=== PATIENT | female | born 1995 | race Two or more races ===

== ENCOUNTER → 2024-04-29 | Outpatient (CLI) | payer OTHER ==
[2024-04-29 09:13] LABS: Basophils # (auto) 0.1 10 ^3/uL (0-0.2); Basophils % (auto) 0.4 % (0.0-2.0); Eosinophils # (auto) 0.1 10 ^3/uL (0-0.8); Eosinophils % (auto) 0.6 % (0.0-7.0); Hematocrit 42.5 % (36.0-46.0); Hemoglobin 14.3 g/dL (12.2-16.2); Lymphocytes # (auto) 1.9 10 ^3/uL (0.4-5.4); Lymphocytes % (auto) 15.4 % (10.0-50.0); Mean Corpuscular Hemoglobin 30.1 pg (28.0-32.0); Mean Corpuscular Hgb Conc. 33.6 g/dL (32.0-36.0); Mean Corpuscular Volume 89.6 fL (80.0-100.0); Monocytes # (auto) 0.6 10 ^3/uL (0-1.3); Monocytes % (auto) 5.2 % (0.0-12.0); Neutrophils # (auto) 9.5 10 ^3/uL (1.6-8.6); Neutrophils % (auto) 78.4 % (37.0-80.0); Platelet Count (auto) 273 10^3/uL (140-450); Red Blood Cells 4.74 10^6/uL (4.0-5.20); Red Cell Distribution Width 13.1 % (11.8-14.3); White Blood Cell 12.2 10^3/uL (4.4-10.8)
[2024-04-29 09:54] LABS: Alanine Aminotransferase 36 U/L (7-40); Alkaline Phosphatase 89 U/L (46-116); Anion Gap 9 (5-15); Aspartate Aminotransferase 23 U/L (13-40); BUN/Creatinine Ratio 6.5 (10.0-20.0); Bilirubin, Total 0.3 mg/dL (0.2-1.0); Calcium 9.7 mg/dL (8.7-10.4); Carbon Dioxide 23 mmol/L (20-31); Chloride 105 mmol/L (98-107); Cholesterol 141 mg/dL (< 200); Glucose 97 mg/dL (74-106); HDL Cholesterol 46 mg/dL (40-59); LDL Cholesterol 85 mg/dL (< 100); Sodium 137 mmol/L (136-145); Total Protein 7.8 g/dL (5.7-8.2); Triglycerides 122 mg/dL (< 150)
[2024-04-29 09:57] LABS: Thyroid Stimulating Hormone 1.06 uIU/mL (0.55-4.78)
[2024-04-29 10:01] LABS: Amphetamine Screen, Urine Neg (NEGATIVE); Barbiturate Scree,Urine Neg (NEGATIVE); Benzodiazephine Screen, Urine Neg (NEGATIVE); Cannabinoid Screen, Urine Neg (NEGATIVE); Cocaine Screen, Urine Neg (NEGATIVE); Opiate Scree,Urine Neg (NEGATIVE); Phencyclidine Screen, Urine Neg (NEGATIVE)
[2024-04-29 10:02] LABS: Albumin 5.1 g/dL (3.2-4.8); Blood Urea Nitrogen 6 mg/dL (9-23)
[2024-04-29 10:32] LABS: Hepatitis B Core Total AB Negative (Negative)
[2024-04-29 11:53] LABS: Free T3 3.29 pg/mL (2.3-4.2); Free T4 (Free Thyroxine) 1.15 ng/dL (0.89-1.76)
[2024-04-29 13:04] LABS: Hepatitis A Total Antibody Positive (Negative); Hepatitis B Surface Antibody Negative (Negative)
[2024-04-29 13:05] LABS: Hepatitis B Surface Antigen Negative (Negative); Hepatitis C Antibody Negative (Negative)
[2024-04-30 08:06] LABS: Alpha-1-Antitrypsin 173 mg/dL (100-188)
[2024-04-30 19:06] LABS: Chlamydia Trachomatis, NAA Negative (Negative); Neisseria gonorrhoeae, NAA Negative (Negative)
[2024-05-01 03:06] LABS: Varicella Zoster IgG Antibody Reactive (Non Reactive)
== END | disposition home or self-care (01) ==
LOC: LAB 08:33
PROVIDERS: ATTEND Licensed Practical Nurse
DX: O23.40 Unspecified infection of urinary tract in pregnancy, unspecified trimester (principal); Z31.430 Encounter of female for testing for genetic disease carrier status for procreative management; Z36.0 Encounter for antenatal screening for chromosomal anomalies; N39.0 Urinary tract infection, site not specified; E55.9 Vitamin D deficiency, unspecified; Z3A.00 Weeks of gestation of pregnancy not specified
CPT/HCPCS: 36415; 80053; 80061; 80307; 81025; 82103; 82306; 83036; 84439; 84443; 84481; 84702; 85025; 86592; 86703; 86704; 86706; 86708; 86762; 86787; 86803; 86850; 86900; 86901; 87086; 87340

== ENCOUNTER 2024-08-29 17:00 | Observation (INO) | payer OTHER ==
[~2024-08-29] VITALS: Ht 154.9 cm; Wt 94.3 kg
--- NOTE | 2024-08-29 17:59 | DVH ---
EXAM: US OBSTERICAL LIMITED CLINICAL HISTORY: vaginal bleeding COMPARISON: None TECHNIQUE: Grayscale, color-flow Doppler, and spectral Doppler ultrasound of the pelvis is performed by transabdominal technique. Findings/Impression: Single live intrauterine in breech presentation with heart rate of 140 bpm. Cervical os appears closed and measures 3.9 cm in length. Placenta is posterior in location without evidence of previa or abruption. MVP 4.5 cm.
== END 2024-08-29 17:58 | disposition home or self-care (01) ==
LOC: LDRP 17:00
PROVIDERS: ADMIT Obstetrics & Gynecology; ATTEND Obstetrics & Gynecology
DX: O46.92 Antepartum hemorrhage, unspecified, second trimester (principal); O26.892 Other specified pregnancy related conditions, second trimester; R10.9 Unspecified abdominal pain; Z3A.23 23 weeks gestation of pregnancy
CPT/HCPCS: 76815; 81002; 94760; G0378

== ENCOUNTER 2024-12-19 01:07 | Inpatient (IN) | payer OTHER ==
[~2024-12-19] VITALS: Ht 154.9 cm; Wt 94.3 kg
[2024-12-25] MEDS ORDERED: PREN-96 PO (16:13)
--- NOTE | 2024-12-25 16:13 | DVH ---
BIOPHYSICAL PROFILE HISTORY: Term Gestation TECHNIQUE: Multiple real-time grayscale sonographic images through the gravid uterus of the fetus wi th duplex Doppler color flow. FINDINGS: BIOPHYSICAL PROFILE: breathing score: 2 movement score: 2 tone score: 2 Quantitative ALEXANDRE score: 2 Total score: 8 out of 8 lie cephalic. heart rate 128 beats per minute. Placenta fundal/ posteriorly positioned. ALEXANDRE 9.1 cm. IMPRESSION: Biophysical profile score: 8 out of 8
[2024-12-25] MEDS ORDERED: LIDOCAINE 2%HCL (LOCAL ANESTH.) INJ 20ML MDV IJ PRN (17:45)
--- NOTE | 2024-12-25 17:54 | DVHHP ---
ADMIT DATE: 12/25/2024 CHIEF COMPLAINT: Induction of labor for nonreactive NST. HISTORY OF PRESENT ILLNESS: The patient is a 29-year-old 5, para 1 with due date of 12/25, estimated gestational age of 40 weeks, admitted for induction of labor. The patient was in labor and delivery for surveillance, noted to have nonreactive NST. Subsequently, the patient was admitted for induction of labor. Her BPP was 8/8. Estimated weight is 7.5. PAST MEDICAL HISTORY: None. PAST SURGICAL HISTORY: D and C. SOCIAL HISTORY: None. FAMILY HISTORY: None. OBSTETRIC AND GYNECOLOGIC HISTORY: Normal vaginal delivery. REVIEW OF SYSTEMS: Consistent with HPI. PHYSICAL EXAMINATION: VITAL SIGNS: Stable, afebrile. HEENT: Within normal limits. CARDIOVASCULAR: Regular rate and rhythm. LUNGS: Clear to auscultation. BREASTS: Symmetrical. No masses. ABDOMEN: Gravid. Estimated weight 7.5. PELVIC: 1 cm, posterior, 25%, -3. EXTREMITIES: No clubbing, cyanosis or edema. IMPRESSION: Intrauterine at 40 weeks, induction of labor. PLAN: Informed consent obtained. We will proceed with Cytotec. DO CARLOS Dent/LING TID: [id number] RECEIPT: [id number]
[2024-12-25 19:23] LABS: Hematocrit 34.3 % (36.0-46.0); Hemoglobin 11.7 g/dL (12.2-16.2); Mean Corpuscular Hemoglobin 29.7 pg (28.0-32.0); Mean Corpuscular Volume 87.4 fL (80.0-100.0); Nucleated Red Blood Cells % 0.0 %
[2024-12-25] MEDS: LACTATED RINGER'S 1,000 ML IV SCH (19:28)
[2024-12-25 19:29] LABS: Urine Protein, UAD Negative (Negative)
--- NOTE | 2024-12-25 19:33 | DVHHP2 ---
OB CC & HPI Date Date of Admission: Dec 25, 2024 Patient Identification: : 5 Para: 1 EDC: Dec 25, 2024 EGA: 40wk Chief Complaints: Reason for admission: induction of labor (NRFHT) Indication for induction: other (NRFHT) History of Present Complaints Pt is a 29 yo , IUP @ 40wk, came in for NST BPP, strip nonreactive, denies any ASTORGA, vision changes or epigastric pain OB hx: in 2020, baby boy, uncomplicated, adequate PNC Past Medical History Cardiac: No pertinent Hx Pulmonary: No pertinent Hx Central Nervous System: No pertinent Hx GI: No pertinent Hx Hemotology/Oncology: No pertinent Hx Hepatobiliary: No pertinent Hx Psychiatric: No pertinent Hx Musculoskeletal: No pertinent Hx Rheumotologic: No pertinent Hx Infectious Disease: No peritnent Hx ENT: No pertinent Hx Renal/: No pertinent Hx Endocrine: No pertinent Hx Dermatology: No pertinent Hx Past Surgical History: No pertinent Hx OB History OB History Care: Good Care Ultrasounds: Normal mid trimester US Obstetrical Complications: None Medical Complications: None Allergies: Coded Allergies: NO KNOWN ALLERGIES (Unverified , 08/29/24) Home Meds Reported Medications Vit W/ Ferrous Fumara ( One Daily) Daily Tab, 1 TAB PO DAILY, #90 TAB 3 Refills 12/25/24 Current Medications Current Medications Medications (Trade) Dose Ordered Sig/Marek Route PRN Reason Start Time Stop Time Status Last Admin Lactated Ringer's 1,000 ml @ 125 mls/hr Q8H IV 12/25/24 17:45 Witch Mariola (Tucks) 1 pad PRN PRN TOP PERINEAL AREA DISCOMFORT 12/25/24 17:45 Sodium Lauryl Sulfate (Phisoderm) 240 ml PRN PRN TOP PERINEAL AREA DISCOMFORT 12/25/24 17:45 Benzocaine (Dermoplast) 1 applic PRN PRN TOP PERINEAL AREA DISCOMFORT 12/25/24 17:45 Misoprostol (Cytotec) 50 mcg Q4HPRN PRN PO CERVICAL RIPENING 12/25/24 17:45 Lidocaine HCl (Xylocaine) 20 ml ONCE PRN IJ PERINEAL AREA DISCOMFORT 12/25/24 17:45 Family & Social History Family/Social History Past Family/Social History: Denies Blood Type: O+ Rubella: not immune RPR/VDRL: Negative GBS Status: Negative HBsAG: Negative Review of Systems Constitutional: No symptom reported Ears, Nose, & Throat: No symptom reported Eyes: No symptom reported Pulmonary/Respiratory: No symptom reported Cardiovascular: No symptom reported Gastrointestinal: No symptom reported Genitourinary: No symptom reported Musculoskeletal: No symptom reported Skin: No symptom reported Psychiatric: No symptom reported Endocrine: No symptom reported Hemotologic/Lymphatic: No symptom reported OB Admission Exam Physical Exam HEENT: TMs Normal, Fontanelles Normal, Nasal Mucosa Normal, Eyes non-injected, Oropharynx Normal, PERRLA, Moist Membranes, EOMI Heart: Rhythm Normal Lungs: Clear Abdomen: Gravid Extremities: Normal Reflexes: Normal Cervical Dilatation: 1cm Effacement: Other (thick) Station: -3 Membranes: Intact Amniotic Fluid: Clear Heart Rate: 140's Accelerations: No Accelerations Decelerations: Variable Decelerations Halfway Variability: Minimal (3-5) Contractions on Admission: >10 Minutes Apart Date/Time Contractions Began: 12/25/24 Frequency of Contractions: 10 Duration: 50-90 Intensity: Mild OB Plan Plan Admitting Diagnosis: 29 yo , IUP @ 40 wk Induction of labor Intact Membrane CAT 2 EFM GBS negative Plan: Induction Induction Methd: Misoprostol protocol Other Plan: P: Visit Coding OBGYN Date of Service: Dec 25, 2024 Billing Provider: TANYA RUBIO DO BACON SLICER Common Visit Codes: [id number] INP/OBS CARE (MOD) BACON SLICER Procedure Codes: 46586-32- NON-STRESS TEST TODD JOSÉ Dec 25, 2024 19:33
[2024-12-25 19:39] LABS: Albumin 3.7 g/dL (3.2-4.8); Anion Gap 12 (5-15); BUN/Creatinine Ratio 11.3 (10.0-20.0); Glucose 100 mg/dL (74-106); Potassium 3.7 mmol/L (3.5-5.1); Sodium 139 mmol/L (136-145); Total Protein 6.2 g/dL (5.7-8.2)
[2024-12-25 19:39] LABS: Amphetamine Screen, Urine Neg (NEGATIVE); Barbiturate Scree,Urine Neg (NEGATIVE); Benzodiazephine Screen, Urine Neg (NEGATIVE); Cannabinoid Screen, Urine Neg (NEGATIVE); Cocaine Screen, Urine Neg (NEGATIVE); Opiate Scree,Urine Neg (NEGATIVE); Phencyclidine Screen, Urine Neg (NEGATIVE)
[2024-12-25 19:40] LABS: Alanine Aminotransferase 9 U/L (7-40); Alkaline Phosphatase 133 U/L (46-116); Bilirubin, Total 0.2 mg/dL (0.2-1.0); Blood Urea Nitrogen 8 mg/dL (9-23); Calcium 8.7 mg/dL (8.7-10.4); Carbon Dioxide 19 mmol/L (20-31); Chloride 108 mmol/L (98-107)
[2024-12-25] MEDS: WITCH HAZEL-GLYCERIN PAD TOP PRN (19:41)
[2024-12-25] MEDS: DERMOPLAST 60ML BOTTLE TOP PRN (19:41)
[2024-12-25] MEDS: PHISODERM TOP SOLN 240ML BTL TOP PRN (19:41)
[2024-12-25 19:42] LABS: INR 0.92 (0.9-1.15); Partial Thromboplastin Time 29.6 SEC (24.5-34.5); Prothrombin Time 9.8 sec (9.3-11.8)
--- NOTE | 2024-12-26 00:32 | DVHPN2 ---
OB Labor Progress Note Date and Time Seen Date Seen: Dec 25, 2024 Time Seen: 23:50 Subjective Patient reports: No new complaints Objective Vital Signs VSS see CPN Monitoring Method Monitoring Method: External Heart Rate Heart Rate Baseline: 125 Heart Rate Variability: Moderate Presence of FHR Accelerations: Yes Presence of FHR Decelerations: No Contractions Contractions Frequency: Occasional (1-2/10) Duration of Contraction: 70 Contractions Intensity: Mild Contractions Resting Tone: Relaxed Membranes Membranes: Intact Vaginal Exam Vag Exam Deferred: No Vaginal Exam Dilation: 1 Vaginal Exam Effacement: 30 Vaginal Exam Station: -3 Vaginal Exam Presentation: VTX Vaginal Exam Show: None Medications Medications - Pitocin: No Medication - Epidural: No Medication - Other s/p PO cytotec x 1 Lab Results Lab Results Current Medications Medications (Trade) Dose Ordered Sig/Marek Start Time Stop Time Status Last Admin Dose Admin Lactated Ringer's 1,000 ml @ 125 mls/hr Q8H 12/25/24 17:45 12/25/24 21:37 125 MLS/HR Yuriy Garnett (Tucks) 1 pad PRN PRN 12/25/24 17:45 12/25/24 19:41 1 PAD Sodium Lauryl Sulfate (Phisoderm) 240 ml PRN PRN 12/25/24 17:45 12/25/24 19:41 240 ML Benzocaine (Dermoplast) 1 applic PRN PRN 12/25/24 17:45 12/25/24 19:41 1 APPLIC Misoprostol (Cytotec) 50 mcg Q4HPRN PRN 12/25/24 17:45 12/26/24 00:10 50 MCG Lidocaine HCl (Xylocaine) 20 ml ONCE PRN 12/25/24 17:45 Oxytocin 500 ml @ 999 mls/hr Q31M ONCE 12/25/24 17:45 12/25/24 18:15 DC Oxytocin 500 ml @ 125 mls/hr Q4H ONCE 12/25/24 18:15 12/25/24 22:14 DC Laboratory Tests Test 12/25/24 18:32 12/25/24 18:00 Range/Units White Blood Count 8.0 4.4-10.8 10^3/uL Red Blood Count 3.93 L 4.0-5.20 10^6/uL Hemoglobin 11.7 L 12.2-16.2 g/dL Hematocrit 34.3 L 36.0-46.0 % Mean Corpuscular Volume 87.4 80.0-100.0 fL Mean Corpuscular Hemoglobin 29.7 28.0-32.0 pg Mean Corpuscular Hemoglobin Concent 33.9 32.0-36.0 g/dL Red Cell Distribution Width 15.0 H 11.8-14.3 % Platelet Count 195 140-450 10^3/uL Mean Platelet Volume 9.7 6.9-10.8 fL Neutrophils (%) (Auto) 70.9 37.0-80.0 % Lymphocytes (%) (Auto) 22.3 10.0-50.0 % Monocytes (%) (Auto) 6.1 0.0-12.0 % Eosinophils (%) (Auto) 0.5 0.0-7.0 % Basophils (%) (Auto) 0.2 0.0-2.0 % Neutrophils # (Auto) 5.7 1.6-8.6 10 ^3/uL Lymphocytes # (Auto) 1.8 0.4-5.4 10 ^3/uL Monocytes # (Auto) 0.5 0-1.3 10 ^3/uL Eosinophils # (Auto) 0 0-0.8 10 ^3/uL Basophils # (Auto) 0 0-0.2 10 ^3/uL Nucleated Red Blood Cells 0.0 % Prothrombin Time 9.8 9.3-11.8 sec Prothrombin Time INR 0.92 0.9-1.15 Activated Partial Thromboplast Time 29.6 24.5-34.5 SEC Sodium Level 139 136-145 mmol/L Potassium Level 3.7 3.5-5.1 mmol/L Chloride Level 108 H 98-107 mmol/L Carbon Dioxide Level 19 L 20-31 mmol/L Anion Gap 12 5-15 Blood Urea Nitrogen 8 L 9-23 mg/dL Creatinine 0.71 0.550-1.02 mg/dL Glomerular Filtration Rate Calc 117 >90 mL/min BUN/Creatinine Ratio 11.3 10.0-20.0 Serum Glucose 100 74-106 mg/dL Calcium Level 8.7 8.7-10.4 mg/dL Total Bilirubin 0.2 0.2-1.0 mg/dL Aspartate Amino Transferase (AST) 21 13-40 U/L Alanine Aminotransferase (ALT) 9 7-40 U/L Alkaline Phosphatase 133 H 46-116 U/L Total Protein 6.2 5.7-8.2 g/dL Albumin 3.7 3.2-4.8 g/dL Treponema pallidum Antibody Non-reactive Negative Hepatitis A Antibody Total Pending Hepatitis C Antibody Negative Negative Urine Color Colorless Yellow Urine Clarity Clear Clear Urine pH 6.5 5.0-9.0 Urine Specific [place] 1.006 1.001-1.035 Urine Protein Negative Negative Urine Ketones Negative Negative Urine Blood Negative Negative /uL Urine Nitrite Negative Negative Urine Bilirubin Negative Negative Urine Urobilinogen Normal Negative mg/dL Urine Leukocyte Esterase 3+ Negative /uL Urine RBC 1 0 - 4 /hpf Urine Microscopic WBC 14 H 0-5 /HPF Urine Squamous Epithelial Cells Few <5 /hpf Urine Bacteria Few H None Seen /hpf Urine Glucose Normal Normal mg/dL Urine Opiates Screen Neg NEGATIVE Urine Fentanyl Screen Neg NEGATIVE Urine Barbiturates Screen Neg NEGATIVE Urine Phencyclidine Screen Neg NEGATIVE Urine Amphetamines Screen Neg NEGATIVE Urine Benzodiazepines Screen Neg NEGATIVE Urine Cocaine Screen Neg NEGATIVE Urine Cannabinoids Screen Neg NEGATIVE Assessment Assessment A: 29yo IUP@40.0wks Induction of Labor for NRFHT Category I EFM Intact Membranes GBS negative Plan Plan P: Discussed potential of placing Witt balloon with next SVE. Pt agrees with POC monitoring per order Pain mgmt PRN Frequent position changes in and out of bed encouraged Limit SVE unless necessary Intrauterine resuscitation PRN Anticipate CNM will consult with Dr Chase PRN Plan discussed with: Patient Visit Coding OBGYN Date of Service: Dec 25, 2024 Billing Provider: VIKY THAKUR CNM SIX SIGMA BLACK TRAINER Common Visit Codes: [id number] INP/OBS CARE(MOD) TODD JOSÉ Dec 26, 2024 00:32
--- NOTE | 2024-12-26 06:07 | DVHPN2 ---
CNM Labor Progress Note Date and Time Seen Date Seen: Dec 26, 2024 Time Seen: 04:20 Subjective Patient reports: No new complaints Objective Vital Signs VSS - Monitoring Method Monitoring Method: External Heart Rate Heart Rate Baseline: 125 Heart Rate Variability: Moderate Presence of FHR Accelerations: Yes Presence of FHR Decelerations: No Are all 5 Components of the FH: Yes Contractions Contractions Frequency: Other (3-5 in 10min) Duration of Contraction: 80 Contractions Intensity: Moderate Contractions Resting Tone: Relaxed Membranes Amniotic Fluid Color: Clear Vaginal Exam Vag Exam Deferred: No Vaginal Exam Dilation: 2 Vaginal Exam Effacement: 50 Vaginal Exam Station: -3 Vaginal Exam Presentation: VTX Vaginal Exam Show: None (Forebag noted with contraction on VE) Medications Medications - Pitocin: No Medication - Epidural: No Medication - Other s/p 2 doses of Misoprostol Lab Results Lab Results Current Medications Medications (Trade) Dose Ordered Sig/Marek Start Time Stop Time Status Last Admin Dose Admin Lactated Ringer's 1,000 ml @ 125 mls/hr Q8H 12/25/24 17:45 12/26/24 03:32 125 MLS/HR Witch Mariola (Tucks) 1 pad PRN PRN 12/25/24 17:45 12/25/24 19:41 1 PAD Sodium Lauryl Sulfate (Phisoderm) 240 ml PRN PRN 12/25/24 17:45 12/25/24 19:41 240 ML Benzocaine (Dermoplast) 1 applic PRN PRN 12/25/24 17:45 12/25/24 19:41 1 APPLIC Misoprostol (Cytotec) 50 mcg Q4HPRN PRN 12/25/24 17:45 12/26/24 00:10 50 MCG Lidocaine HCl (Xylocaine) 20 ml ONCE PRN 12/25/24 17:45 Oxytocin 500 ml @ 999 mls/hr Q31M ONCE 12/25/24 17:45 12/25/24 18:15 DC Oxytocin 500 ml @ 125 mls/hr Q4H ONCE 12/25/24 18:15 12/25/24 22:14 DC Laboratory Tests Test 12/25/24 18:32 12/25/24 18:00 Range/Units White Blood Count 8.0 4.4-10.8 10^3/uL Red Blood Count 3.93 L 4.0-5.20 10^6/uL Hemoglobin 11.7 L 12.2-16.2 g/dL Hematocrit 34.3 L 36.0-46.0 % Mean Corpuscular Volume 87.4 80.0-100.0 fL Mean Corpuscular Hemoglobin 29.7 28.0-32.0 pg Mean Corpuscular Hemoglobin Concent 33.9 32.0-36.0 g/dL Red Cell Distribution Width 15.0 H 11.8-14.3 % Platelet Count 195 140-450 10^3/uL Mean Platelet Volume 9.7 6.9-10.8 fL Neutrophils (%) (Auto) 70.9 37.0-80.0 % Lymphocytes (%) (Auto) 22.3 10.0-50.0 % Monocytes (%) (Auto) 6.1 0.0-12.0 % Eosinophils (%) (Auto) 0.5 0.0-7.0 % Basophils (%) (Auto) 0.2 0.0-2.0 % Neutrophils # (Auto) 5.7 1.6-8.6 10 ^3/uL Lymphocytes # (Auto) 1.8 0.4-5.4 10 ^3/uL Monocytes # (Auto) 0.5 0-1.3 10 ^3/uL Eosinophils # (Auto) 0 0-0.8 10 ^3/uL Basophils # (Auto) 0 0-0.2 10 ^3/uL Nucleated Red Blood Cells 0.0 % Prothrombin Time 9.8 9.3-11.8 sec Prothrombin Time INR 0.92 0.9-1.15 Activated Partial Thromboplast Time 29.6 24.5-34.5 SEC Sodium Level 139 136-145 mmol/L Potassium Level 3.7 3.5-5.1 mmol/L Chloride Level 108 H 98-107 mmol/L Carbon Dioxide Level 19 L 20-31 mmol/L Anion Gap 12 5-15 Blood Urea Nitrogen 8 L 9-23 mg/dL Creatinine 0.71 0.550-1.02 mg/dL Glomerular Filtration Rate Calc 117 >90 mL/min BUN/Creatinine Ratio 11.3 10.0-20.0 Serum Glucose 100 74-106 mg/dL Calcium Level 8.7 8.7-10.4 mg/dL Total Bilirubin 0.2 0.2-1.0 mg/dL Aspartate Amino Transferase (AST) 21 13-40 U/L Alanine Aminotransferase (ALT) 9 7-40 U/L Alkaline Phosphatase 133 H 46-116 U/L Total Protein 6.2 5.7-8.2 g/dL Albumin 3.7 3.2-4.8 g/dL Treponema pallidum Antibody Non-reactive Negative Hepatitis A Antibody Total Pending Hepatitis C Antibody Negative Negative Urine Color Colorless Yellow Urine Clarity Clear Clear Urine pH 6.5 5.0-9.0 Urine Specific [place] 1.006 1.001-1.035 Urine Protein Negative Negative Urine Ketones Negative Negative Urine Blood Negative Negative /uL Urine Nitrite Negative Negative Urine Bilirubin Negative Negative Urine Urobilinogen Normal Negative mg/dL Urine Leukocyte Esterase 3+ Negative /uL Urine RBC 1 0 - 4 /hpf Urine Microscopic WBC 14 H 0-5 /HPF Urine Squamous Epithelial Cells Few <5 /hpf Urine Bacteria Few H None Seen /hpf Urine Glucose Normal Normal mg/dL Urine Opiates Screen Neg NEGATIVE Urine Fentanyl Screen Neg NEGATIVE Urine Barbiturates Screen Neg NEGATIVE Urine Phencyclidine Screen Neg NEGATIVE Urine Amphetamines Screen Neg NEGATIVE Urine Benzodiazepines Screen Neg NEGATIVE Urine Cocaine Screen Neg NEGATIVE Urine Cannabinoids Screen Neg NEGATIVE Assessment Assessment IUP at 40w 1d IOL for NR FHR Tracing Cat I FHR Tracing Plan Plan Continue current Plan EFM per protocol Intrauterine resuscitation PRN Labor analgesia PRN Positions & Frequent position change to facilitate labor and descent Supportive care Anticipate Plan discussed with: Patient Visit Coding OBGYN Date of Service: Dec 26, 2024 Billing Provider: VIKY THAKUR CNM FLOW MATCH SOFA CUTTER Common Visit Codes: [id number] INP/OBS CARE(HIGH) FLOW MATCH SOFA CUTTER Procedure Codes: 24524-35- NON-STRESS TEST VIKY THAKUR CNM Dec 26, 2024 06:07
--- NOTE | 2024-12-26 07:00 | DVHPN2 ---
Chief Complaints Patient reports: No new complaints Nursing reports: No new complaints Objective Medications Current Medications Medications (Trade) Dose Ordered Sig/Marek Route PRN Reason Start Time Stop Time Status Last Admin Benzocaine (Dermoplast) 1 applic PRN PRN TOP PERINEAL AREA DISCOMFORT 12/25/24 17:45 12/25/24 19:41 Lactated Ringer's 1,000 ml @ 125 mls/hr Q8H IV 12/25/24 17:45 12/26/24 03:32 Lidocaine HCl (Xylocaine) 20 ml ONCE PRN IJ PERINEAL AREA DISCOMFORT 12/25/24 17:45 Misoprostol (Cytotec) 50 mcg Q4HPRN PRN PO CERVICAL RIPENING 12/25/24 17:45 12/26/24 00:10 Sodium Lauryl Sulfate (Phisoderm) 240 ml PRN PRN TOP PERINEAL AREA DISCOMFORT 12/25/24 17:45 12/25/24 19:41 Witch Mariola (Tucks) 1 pad PRN PRN TOP PERINEAL AREA DISCOMFORT 12/25/24 17:45 12/25/24 19:41 Others ve-2cm/50/-2 Studies Laboratory Tests 12/25/24 18:32 Test 12/25/24 18:32 Range/Units Serum Glucose 100 74-106 mg/dL Ass/Plan Assessment iol with srom Plan start pitocin Visit Coding OBGYN Date of Service: Dec 26, 2024 Billing Provider: TANYA RUBIO DO MIXING SUPERVISOR Common Visit Codes: [id number] INP/OBS CARE (HIGH) MIXING SUPERVISOR Procedure Codes: [id number].SURG:ON OVIDUCT/OVARY, 02094-34- NON- STRESS TEST TANYA RUBIO DO Dec 26, 2024 07:00
[2024-12-26] MEDS ORDERED: LACT. RINGERS/OXYTOCIN 20UNITS 500 ML IV ONE (07:30)
[2024-12-26] MEDS ORDERED: TERBUTALINE SULFATE 1 MG/ML 1ML VIAL SC PRN (07:30)
--- NOTE | 2024-12-26 07:30 | DVHPN2 ---
CNM Labor Progress Note Date and Time Seen Date Seen: Dec 26, 2024 Time Seen: 06:55 Subjective Patient reports: No new complaints Objective Vital Signs VSS Monitoring Method Monitoring Method: External Heart Rate Heart Rate Baseline: 130 Heart Rate Variability: Moderate Presence of FHR Accelerations: Yes Presence of FHR Decelerations: Yes Heart Rate Type of Decel: Early Deceleraions, Variable Decelerations Changes in Trends of Patterns: No Are all 5 Components of the FH: Yes Contractions Contractions Frequency: Other Duration of Contraction: 80 Contractions Intensity: Moderate Contractions Resting Tone: Relaxed Membranes Membranes: Ruptured (Forebag felt on VE) Vaginal Exam Vag Exam Deferred: No Vaginal Exam Dilation: 4 Vaginal Exam Effacement: 60 Vaginal Exam Station: -2 Vaginal Exam Presentation: VTX Vaginal Exam Show: Small Medications Medication - Epidural: No Medication - Other s/p Misoprostol dose #2 Lab Results Lab Results Current Medications Medications (Trade) Dose Ordered Sig/Marek Start Time Stop Time Status Last Admin Dose Admin Lactated Ringer's 1,000 ml @ 125 mls/hr Q8H 12/25/24 17:45 12/26/24 03:32 125 MLS/HR Witch Mariola (Tucks) 1 pad PRN PRN 12/25/24 17:45 12/25/24 19:41 1 PAD Sodium Lauryl Sulfate (Phisoderm) 240 ml PRN PRN 12/25/24 17:45 12/25/24 19:41 240 ML Benzocaine (Dermoplast) 1 applic PRN PRN 12/25/24 17:45 12/25/24 19:41 1 APPLIC Misoprostol (Cytotec) 50 mcg Q4HPRN PRN 12/25/24 17:45 12/26/24 00:10 50 MCG Lidocaine HCl (Xylocaine) 20 ml ONCE PRN 12/25/24 17:45 Oxytocin 500 ml @ 999 mls/hr Q31M ONCE 12/25/24 17:45 12/25/24 18:15 DC Oxytocin 500 ml @ 125 mls/hr Q4H ONCE 12/25/24 18:15 12/25/24 22:14 DC Laboratory Tests Test 12/25/24 18:32 12/25/24 18:00 Range/Units White Blood Count 8.0 4.4-10.8 10^3/uL Red Blood Count 3.93 L 4.0-5.20 10^6/uL Hemoglobin 11.7 L 12.2-16.2 g/dL Hematocrit 34.3 L 36.0-46.0 % Mean Corpuscular Volume 87.4 80.0-100.0 fL Mean Corpuscular Hemoglobin 29.7 28.0-32.0 pg Mean Corpuscular Hemoglobin Concent 33.9 32.0-36.0 g/dL Red Cell Distribution Width 15.0 H 11.8-14.3 % Platelet Count 195 140-450 10^3/uL Mean Platelet Volume 9.7 6.9-10.8 fL Neutrophils (%) (Auto) 70.9 37.0-80.0 % Lymphocytes (%) (Auto) 22.3 10.0-50.0 % Monocytes (%) (Auto) 6.1 0.0-12.0 % Eosinophils (%) (Auto) 0.5 0.0-7.0 % Basophils (%) (Auto) 0.2 0.0-2.0 % Neutrophils # (Auto) 5.7 1.6-8.6 10 ^3/uL Lymphocytes # (Auto) 1.8 0.4-5.4 10 ^3/uL Monocytes # (Auto) 0.5 0-1.3 10 ^3/uL Eosinophils # (Auto) 0 0-0.8 10 ^3/uL Basophils # (Auto) 0 0-0.2 10 ^3/uL Nucleated Red Blood Cells 0.0 % Prothrombin Time 9.8 9.3-11.8 sec Prothrombin Time INR 0.92 0.9-1.15 Activated Partial Thromboplast Time 29.6 24.5-34.5 SEC Sodium Level 139 136-145 mmol/L Potassium Level 3.7 3.5-5.1 mmol/L Chloride Level 108 H 98-107 mmol/L Carbon Dioxide Level 19 L 20-31 mmol/L Anion Gap 12 5-15 Blood Urea Nitrogen 8 L 9-23 mg/dL Creatinine 0.71 0.550-1.02 mg/dL Glomerular Filtration Rate Calc 117 >90 mL/min BUN/Creatinine Ratio 11.3 10.0-20.0 Serum Glucose 100 74-106 mg/dL Calcium Level 8.7 8.7-10.4 mg/dL Total Bilirubin 0.2 0.2-1.0 mg/dL Aspartate Amino Transferase (AST) 21 13-40 U/L Alanine Aminotransferase (ALT) 9 7-40 U/L Alkaline Phosphatase 133 H 46-116 U/L Total Protein 6.2 5.7-8.2 g/dL Albumin 3.7 3.2-4.8 g/dL Treponema pallidum Antibody Non-reactive Negative Hepatitis A Antibody Total Pending Hepatitis C Antibody Negative Negative Urine Color Colorless Yellow Urine Clarity Clear Clear Urine pH 6.5 5.0-9.0 Urine Specific [place] 1.006 1.001-1.035 Urine Protein Negative Negative Urine Ketones Negative Negative Urine Blood Negative Negative /uL Urine Nitrite Negative Negative Urine Bilirubin Negative Negative Urine Urobilinogen Normal Negative mg/dL Urine Leukocyte Esterase 3+ Negative /uL Urine RBC 1 0 - 4 /hpf Urine Microscopic WBC 14 H 0-5 /HPF Urine Squamous Epithelial Cells Few <5 /hpf Urine Bacteria Few H None Seen /hpf Urine Glucose Normal Normal mg/dL Urine Opiates Screen Neg NEGATIVE Urine Fentanyl Screen Neg NEGATIVE Urine Barbiturates Screen Neg NEGATIVE Urine Phencyclidine Screen Neg NEGATIVE Urine Amphetamines Screen Neg NEGATIVE Urine Benzodiazepines Screen Neg NEGATIVE Urine Cocaine Screen Neg NEGATIVE Urine Cannabinoids Screen Neg NEGATIVE Assessment Assessment <> IUP at 40w 4d <> IOL for NR FHR Tracing <> GBS Neg Plan Plan Continue EFM per protocol Oxytocin Augmentation Intra-uterine resuscitation PRN Labor analgesia PRN Frequent position change to facilitate labor Supportive care Anticipate Plan discussed with: Patient, Spouse Visit Coding OBGYN Date of Service: Dec 26, 2024 Billing Provider: VIKY THAKUR CNM REPORTER ANCHOR Common Visit Codes: [id number] INP/OBS CARE(HIGH) REPORTER ANCHOR Procedure Codes: 65966-61- NON-STRESS TEST VIKY THAKUR CNM Dec 26, 2024 07:30
[2024-12-26] MEDS ORDERED: LACT. RINGERS/OXYTOCIN 20UNITS 1,000 ML IV SCH (08:00)
[2024-12-26] MEDS: LACT. RINGERS/OXYTOCIN 20UNITS 1,000 ML IV SCH (08:02)
[2024-12-26] MEDS: METHYLERGONOVINE MALEATE 0.2 MG/ML AMP IM ONE (10:58)
[2024-12-26] MEDS ORDERED: METHYLERGONOVINE MALEATE 0.2 MG/ML AMP IM ONE (10:58)
[2024-12-26] MEDS ORDERED: ONDANSETRON ODT 4 MG TAB PO PRN (11:15)
[2024-12-26] MEDS ORDERED: ACETAMINOPHEN 325 MG TAB PO PRN (11:15)
[2024-12-26] MEDS ORDERED: IBUPROFEN 600 MG TAB PO PRN (11:15)
[2024-12-26] MEDS: LACT. RINGERS/OXYTOCIN 20UNITS 500 ML IV ONE ×2 (11:25)
--- NOTE | 2024-12-26 12:09 | LDN2 ---
Labor and Delivery Note Date 12/26/24 Age 29 5 Para 2 AB 3 EDC 10-8 EGA 40wks Diagnosis iol for non reassuring fht,40wks Vaginal Delivery: VTX Vacuum Assisted: No Placenta: Spontaneous Sex: Male Apgars 8-9 Nuchal Cord Transected: Yes Amniotic Fluid: Clear Anesthesia xylocaine Episiotomy: No Extension: Yes (1st deg periurethral lac) Repaired with 2-0 chromic EBL 300ml Labs Laboratory Tests 04/29/24 08:58: Hepatitis B Surface Antigen Negative, HIV (1&2) Antibody Negative, Rubella Antibody Positive Blood Bank 12/25/24 18:32: Blood Type O POSITIVE Complications none Conditions stable Comments/Significant Med Derrick spec exam no cxal lac Visit Coding OBGYN Date of Service: Dec 26, 2024 Billing Provider: TANYA RUBIO DO DIRECTOR ONLINE MARKETING Common Visit Codes: [id number] OBS CARE (HIGH) DIRECTOR ONLINE MARKETING Procedure Codes: [id number] DELIVERY ONLY TANYA RUBIO DO Dec 26, 2024 12:09
[2024-12-26 13:15] VITALS: RESP 20
[2024-12-26 19:00] VITALS: BP 108/66; PULSE 82; RESP 16; TEMP 98.5; O2SAT 96
[2024-12-26] MEDS: DOCUSATE SOD 100 MG CAP PO SCH (21:51)
[2024-12-26 23:12] VITALS: BP 111/77; PULSE 95; RESP 16; TEMP 98.5; O2SAT 96
--- NOTE | 2024-12-27 02:15 | DVHPN2 ---
Progress Note Date Seen: Dec 27, 2024 Subjective S: > Lochia minimal > Tolerating regular diet well. > Ambulating and voiding well w/o feeling lightheaded or dizzy. > Passing flatus but no BM yet. Breast feeding. > Contraceptive plan:Vasectomy > Desires and requests to be discharged home today vital signs Vital Sign Date Time Temp Pulse Resp B/P (MAP) Pulse Ox O2 Delivery O2 Flow Rate FiO2 12/26/24 23:12 98.5 95 16 111/77 (88) 96 98.5 12/26/24 19:00 Room Air Total Intake and Output 12/26/24 12/26/24 12/27/24 15:00 23:00 07:00 Output Total 400 ml 1750 ml Balance -400 ml -1750 ml medications Current Medications Medications Dose Ordered Sig/Marek Route Start Time Stop Time Status Last Admin Dose Admin Lactated Ringer's 1,000 ml @ 125 mls/hr Q8H IV 12/25/24 17:45 12/26/24 09:14 125 MLS/HR Witch Mariola 1 pad PRN PRN TOP 12/25/24 17:45 12/25/24 19:41 1 PAD Sodium Lauryl Sulfate 240 ml PRN PRN TOP 12/25/24 17:45 12/25/24 19:41 240 ML Benzocaine 1 applic PRN PRN TOP 12/25/24 17:45 12/25/24 19:41 1 APPLIC Lidocaine HCl 20 ml ONCE PRN IJ 12/25/24 17:45 Cancel Oxytocin 1,000 ml @ 125 mls/hr Q8H IV 12/26/24 08:00 Cancel Ibuprofen 600 mg Q6HP PRN PO 12/26/24 11:15 Acetaminophen 650 mg Q4HP PRN PO 12/26/24 11:15 Ondansetron HCl 4 mg Q4HPRN PRN PO 12/26/24 11:15 Docusate Sodium 200 mg HS PO 12/26/24 22:00 12/26/24 21:51 200 MG laboratory and microbiology Laboratory Tests 12/25/24 18:32 Test 12/25/24 18:32 Range/Units Serum Glucose 100 74-106 mg/dL Objective O: A&O x3 NAD. Afebrile, VSS Chest: heart and lung sounds normal. Breasts: Nipples intact w/o cracks or soreness Abdomen: normal BS, soft, non-tender, no rebound or guarding, fundus firm @ U- 1, lochia minimal Perineum:- no edema, or erythema, laceration site with sutures intact, edges in good approximation. Extremities: no edema or tenderness Lochia - minimal Assessment/Plan > 29yo now ppd#2 s/p , doing well. > Blood Type: O Rh: Positive > Breast feeding > Rubella Immune > Pain control with oral medications > Bowel regimen: Increase fluid intake and fiber in diet, Laxative PRN > PP BCM Plan: Vasectomy > Discharge plan: May discharge home later today if condition remains stable Plan discussed with: Patient, Spouse Visit Coding OBGYN Date of Service: Dec 27, 2024 Billing Provider: VIKY THAKUR CNM PROCESSING INSPECTOR Common Visit Codes: [id number] INP/OBS CARE(HIGH) VIKY THAKUR CNM Dec 27, 2024 02:15
--- NOTE | 2024-12-27 03:56 | DVHDS2 ---
Discharge Summary Date of Admission Dec 25, 2024 at 17:30 Date of Discharge: Dec 27, 2024 Admitting Diagnosis IUP at 40weeks Non Reactive NST Labs/Diagnostic Data: Laboratory Results Test 12/25/24 18:32 12/25/24 18:00 White Blood Count 8.0 10^3/uL (4.4-10.8) Red Blood Count 3.93 10^6/uL (4.0-5.20) Hemoglobin 11.7 g/dL (12.2-16.2) Hematocrit 34.3 % (36.0-46.0) Mean Corpuscular Volume 87.4 fL (80.0-100.0) Mean Corpuscular Hemoglobin 29.7 pg (28.0-32.0) Mean Corpuscular Hemoglobin Concent 33.9 g/dL (32.0-36.0) Red Cell Distribution Width 15.0 % (11.8-14.3) Platelet Count 195 10^3/uL (140-450) Mean Platelet Volume 9.7 fL (6.9-10.8) Neutrophils (%) (Auto) 70.9 % (37.0-80.0) Lymphocytes (%) (Auto) 22.3 % (10.0-50.0) Monocytes (%) (Auto) 6.1 % (0.0-12.0) Eosinophils (%) (Auto) 0.5 % (0.0-7.0) Basophils (%) (Auto) 0.2 % (0.0-2.0) Neutrophils # (Auto) 5.7 10 ^3/uL (1.6-8.6) Lymphocytes # (Auto) 1.8 10 ^3/uL (0.4-5.4) Monocytes # (Auto) 0.5 10 ^3/uL (0-1.3) Eosinophils # (Auto) 0 10 ^3/uL (0-0.8) Basophils # (Auto) 0 10 ^3/uL (0-0.2) Nucleated Red Blood Cells 0.0 % Prothrombin Time 9.8 sec (9.3-11.8) Prothrombin Time INR 0.92 (0.9-1.15) Activated Partial Thromboplast Time 29.6 SEC (24.5-34.5) Sodium Level 139 mmol/L (136-145) Potassium Level 3.7 mmol/L (3.5-5.1) Chloride Level 108 mmol/L (98-107) Carbon Dioxide Level 19 mmol/L (20-31) Anion Gap 12 (5-15) Blood Urea Nitrogen 8 mg/dL (9-23) Creatinine 0.71 mg/dL (0.550-1.02) Glomerular Filtration Rate Calc 117 mL/min (>90) BUN/Creatinine Ratio 11.3 (10.0-20.0) Serum Glucose 100 mg/dL (74-106) Calcium Level 8.7 mg/dL (8.7-10.4) Total Bilirubin 0.2 mg/dL (0.2-1.0) Aspartate Amino Transferase (AST) 21 U/L (13-40) Alanine Aminotransferase (ALT) 9 U/L (7-40) Alkaline Phosphatase 133 U/L (46-116) Total Protein 6.2 g/dL (5.7-8.2) Albumin 3.7 g/dL (3.2-4.8) Treponema pallidum Antibody Non-reactive (Negative) Hepatitis C Antibody Negative (Negative) Urine Color Colorless (Yellow) Urine Clarity Clear (Clear) Urine pH 6.5 (5.0-9.0) Urine Specific [place] 1.006 (1.001-1.035) Urine Protein Negative (Negative) Urine Ketones Negative (Negative) Urine Blood Negative /uL (Negative) Urine Nitrite Negative (Negative) Urine Bilirubin Negative (Negative) Urine Urobilinogen Normal mg/dL (Negative) Urine Leukocyte Esterase 3+ /uL (Negative) Urine RBC 1 /hpf (0 - 4) Urine Microscopic WBC 14 /HPF (0-5) Urine Squamous Epithelial Cells Few /hpf (<5) Urine Bacteria Few /hpf (None Seen) Urine Glucose Normal mg/dL (Normal) Urine Opiates Screen Neg (NEGATIVE) Urine Fentanyl Screen Neg (NEGATIVE) Urine Barbiturates Screen Neg (NEGATIVE) Urine Phencyclidine Screen Neg (NEGATIVE) Urine Amphetamines Screen Neg (NEGATIVE) Urine Benzodiazepines Screen Neg (NEGATIVE) Urine Cocaine Screen Neg (NEGATIVE) Urine Cannabinoids Screen Neg (NEGATIVE) Other Laboratory Tests 12/25/24 18:32 Brief Hx & Hospital Course: Rosalina Klein was admitted on 12/25/24 for IOL at EGA of 40weeks 0day due to non-reactive NST. Induction process started with cervical ripening medication followed by Pitocin augmentation.Patient then had an uneventful labor, she progressed to 2nd stage of labor and had a of a baby boy. She had 1st degree periurethral laceration, same repaired. (See Delivery Note for details) Normal course; meeting milestones w/o any problem or complications. Operations or Procedures > IOL > > Repair of laceration Condition at Discharge: Good Final Diagnosis/Problems List Term - Delivered Day #1 Discharge Disposition: Home Discharge Instruct/Medications Diet: Regular Diet comment: Routine regular diet rich in fiber, protein, iron and vitamin C with adequate fluid intake. Activity: No Restrictions, As Tolerated Activity comment: Unrestricted. Advance as tolerated. Balance activities with rest periods No heavy lifting, pushing or straining. Pelvic rest x 6weeks Follow Up/Referral: Follow up with OB Provider in 1-2weeks Medications: Ibuprofen 600mg every 6 hours as needed for pain. Continue Vitamin and iron Scheduled Vit W/ Ferrous [place]um[place] ( One Daily), 1 TAB PO DAILY, (Reported) Discharge Statement: self care instructions given. emergency signs and symptoms including but not limited to pre-eclampsia precautions and signs of infection, PPH & of PPD reviewed with patient. "Patient was advised to return to the ER or call 911 if any headaches, dizziness, shortness of breath, chest pain, abdominal pain, bleeding, fevers, or worsening of medical condition. Patient was counseled about treatment plan, medications, possible side effects, patientverbalized understanding. All questions were answered to the best of my ability. This discharge took greater then 30 minutes in planning, reviewing documentation, counseling the patient, and discussing with other team members." Discharge Care Plan Instructions See pt D/C handouts ASSESSMENT ASSESSMENT Hospital Course Rosalina Klein was admitted on 12/25/24 for IOL at EGA of 40weeks 0day due to non-reactive NST. Induction process started with cervical ripening medication followed by Pitocin augmentation.Patient then had an uneventful labor, she progressed to 2nd stage of labor and had a of a baby boy. She had 1st degree periurethral laceration, same repaired. (See Delivery Note for details) Normal course; meeting milestones w/o any problem or complications. Assessment Term - Delivered Day #1 Visit Coding OBGYN Date of Service: Dec 27, 2024 Billing Provider: VIKY THAKUR CNM PRODUCTION ANALYST Common Visit Codes: [id number] DISCH DAY >30MIN VIKY THAKUR CNM Dec 27, 2024 03:56
[2024-12-27 11:00] VITALS: BP 123/79; PULSE 104; RESP 20; TEMP 98; O2SAT 97
== END 2024-12-27 13:33 | disposition home or self-care (01) | DRG 807 ==
LOC: LDRP 12-25 15:05 → OBSVTOIN 12-25 17:30 → LDRP 12-25 22:46
PROVIDERS: ADMIT Obstetrics & Gynecology; ATTEND Obstetrics & Gynecology
PROC: 10E0XZZ Delivery of Products of Conception, External Approach (ICD-10-PCS; principal; 2024-12-26)
PROC: 3E0DXGC Introduction of Other Therapeutic Substance into Mouth and Pharynx, External Approach (ICD-10-PCS; 2024-12-26)
PROC: 0HQ9XZZ Repair Perineum Skin, External Approach (ICD-10-PCS; 2024-12-26)
DX: O69.81X0 Labor and delivery complicated by cord around neck, without compression, not applicable or unspecified (principal); Z37.0 Single live birth; Z3A.40 40 weeks gestation of pregnancy; O76 Abnormality in fetal heart rate and rhythm complicating labor and delivery; O71.82 Other specified trauma to perineum and vulva
CPT/HCPCS: 36415; 59025; 59409; 76819; 80053; 80307; 81001; 81002; 85025; 85610; 85730; 86708; 86780; 86803; 86850; 86900; 86901; 94760; 94762; 96360; 96361; A4344; G0378; J2590